=== PATIENT | male | born 1945 | race Caucasian/White ===

== ENCOUNTER 2020-07-23 16:09 | Emergency (ER) | payer MEDICARE ==
[~2020-07-23] VITALS: Ht 175.2 cm; Wt 79.5 kg
[~2020-07-23 16:09] MED LIST: CEFD300C3 PO; GLIM2TAB4; METF-399
--- NOTE | 2020-07-23 16:18 | ED General ---
General Stated Complaint: GEN WEAKNESS Source of Information: Patient, EMS History of Present Illness Date Seen by Provider: Jul 23, 2020 Time Seen by Provider: 16:16 Initial Comments 75-year-old male presents via EMS from home with complaint of weakness, decreased appetite, lower abdominal pain for the past couple weeks. EMS states they went to see him 2 weeks ago for the same and he had refused transport at that time. Denies any recent illness, fever or chills, denies chest pain, swelling of extremities, cough or shortness of air. Denies any exposure to the [facility] virus. Allergies and Home Medications Allergies Coded Allergies: omeprazole (Unverified Adverse Reaction, Unknown, 02/23/20) [facility] records state "hypertension" Home Medications Azithromycin 250 Mg Tablet, 250 MG PO UD TAKE 2 TABLETS ON DAY ONE THEN TAKE 1 TABLET DAILY FOR FOUR MORE DAYS Prescribed by: MARCOS KRAUS on 07/23/201830 Cefdinir 300 Mg Capsule, 300 MG PO BID Prescribed by: GILBERT MULLINS on 02/23/20 155 Ivermectin 3 Mg Tablet, 3 MG PO DAILY PRN 4 tabs po x 1 today, repeat 4 tabs po in 3 days Prescribed by: MARCOS KRAUS on 07/23/201830 Lisinopril/Hydrochlorothiazide 1 Each Tablet, 1 EACH PO DAILY Prescribed by: MARCOS KRAUS on 07/23/201830 Patient Home Medication List Home Medication List Reviewed: Yes Review of Systems Review of Systems Constitutional: see HPI; No chills, No dizziness; malaise, weakness EENTM: no symptoms reported Respiratory: no symptoms reported; No cough, No short of breath Cardiovascular: No chest pain, No edema, No palpitations, No syncope Gastrointestinal: abdominal pain, constipation, loss of appetite; No nausea, No vomiting Skin: No change in color, No rash Psychiatric/Neurological: Denies Headache, Denies Seizure; Weakness Past Ocbthvx-Xdnoiz-Xvkyhw Hx Past Med/Social Hx: Reviewed Nursing Past Med/Soc Hx Patient Social History Recent Hopitalizations: No Seasonal Allergies Seasonal Allergies: No Past Medical History Surgeries: Yes (EGD, Inguinal hernia repair, Hydrocele repair) Transurethral Resection Respiratory: No (Former smoker, poor historian) Cardiac: Yes Neurological: No Genitourinary: Yes (prior TURP) Prostate Problems Gastrointestinal: Yes Gastroesophageal Reflux Musculoskeletal: No Endocrine: Yes Diabetes, Non-Insulin dep HEENT: No Cancer: No Psychosocial: No Integumentary: No Blood Disorders: Yes (Iron def anemia) Physical Exam Vital Signs Vital Signs - First Documented 07/23/20 16:40 Temp 35.7 Pulse 83 Resp 18 B/P (MAP) 193/106 (135) Pulse Ox 100 O2 Delivery Nasal Cannula O2 Flow Rate 2.00 Capillary Refill : Height, Weight, BMI Height: '" Weight: lbs. oz. kg; 22.00 BMI Method: General Appearance: No Apparent Distress, Cachetic, Thin HEENT: PERRL/EOMI, Normal ENT Inspection Respiratory: Chest Non Tender, Lungs Clear, Normal Breath Sounds, No Accessory Muscle Use, No Respiratory Distress Cardiovascular: Regular Rate, Rhythm, No Edema, No Gallop, No JVD Gastrointestinal: No Organomegaly, No Pulsatile Mass, Soft; No Distended, No Guarding, No Hepatomegaly, No Hernia; Tenderness (diffuse mid abdomen, non- localized) Back: Normal Inspection, No CVA Tenderness Extremity: Normal Capillary Refill, Non Tender, No Calf Tenderness Neurologic/Psychiatric: Alert, No Motor/Sensory Deficits, Normal Mood/Affect Skin: Normal Color, Warm/Dry Focused Exam Lactate Level 07/23/20 16:35: Lactic Acid Level 1.33 Lactic Acid Level Laboratory Tests Test 07/23/20 16:35 Lactic Acid Level 1.33 MMOL/L (0.50-2.00) Progress/Results/Core Measures Suspected Sepsis SIRS Temperature: Pulse: Respiratory Rate: Laboratory Tests 07/23/20 16:15: White Blood Count 9.3 Blood Pressure / Mean: 07/23/20 16:35: Lactic Acid Level 1.33 Laboratory Tests 07/23/20 16:15: Platelet Count 626H 07/23/20 16:35: Creatinine 0.79, Total Bilirubin 0.7 Results/Orders Lab Results Laboratory Tests Test 07/23/20 16:15 07/23/20 16:35 Range/Units White Blood Count 9.3 4.3-11.0 10^3/uL Red Blood Count 4.67 4.35-5.85 10^6/uL Hemoglobin 14.5 13.3-17.7 G/DL Hematocrit 44 40-54 % Mean Corpuscular Volume 93 80-99 FL Mean Corpuscular Hemoglobin 31 25-34 PG Mean Corpuscular Hemoglobin Concent 33 32-36 G/DL Red Cell Distribution Width 13.1 10.0-14.5 % Platelet Count 626 H 130-400 10^3/uL Mean Platelet Volume 10.7 H 7.4-10.4 FL Immature Granulocyte % (Auto) 2 % Neutrophils (%) (Auto) 73 42-75 % Lymphocytes (%) (Auto) 11 L 12-44 % Monocytes (%) (Auto) 14 H 0-12 % Eosinophils (%) (Auto) 1 0-10 % Basophils (%) (Auto) 0 0-10 % Neutrophils # (Auto) 6.8 1.8-7.8 X 10^3 Lymphocytes # (Auto) 1.0 1.0-4.0 X 10^3 Monocytes # (Auto) 1.3 H 0.0-1.0 X 10^3 Eosinophils # (Auto) 0.1 0.0-0.3 10^3/uL Basophils # (Auto) 0.0 0.0-0.1 10^3/uL Immature Granulocyte # (Auto) 0.2 H 0.0-0.1 10^3/uL Sodium Level 141 135-145 MMOL/L Potassium Level 3.7 3.6-5.0 MMOL/L Chloride Level 102 98-107 MMOL/L Carbon Dioxide Level 27 21-32 MMOL/L Anion Gap 12 5-14 MMOL/L Blood Urea Nitrogen 16 7-18 MG/DL Creatinine 0.79 0.60-1.30 MG/DL Estimat Glomerular Filtration Rate > 60 BUN/Creatinine Ratio 20 Glucose Level 122 H 70-105 MG/DL Lactic Acid Level 1.33 0.50-2.00 MMOL/L Calcium Level 8.4 L 8.5-10.1 MG/DL Corrected Calcium 9.4 8.5-10.1 MG/DL Total Bilirubin 0.7 0.1-1.0 MG/DL Aspartate Amino Transf (AST/SGOT) 21 5-34 U/L Alanine Aminotransferase (ALT/SGPT) 8 0-55 U/L Alkaline Phosphatase 65 40-136 U/L Troponin I < 0.30 <0.30 NG/ML Total Protein 6.1 L 6.4-8.2 GM/DL Albumin 2.7 L 3.2-4.5 GM/DL Lipase 36 8-78 U/L My Orders Orders - BERNARDAVENSTMARCOS SANCHEZ DO Ed Iv/Invasive Line Start (07/23/20 16:18) Ekg Tracing (07/23/20 16:18) Cbc With Automated Diff (07/23/20 16:18) Comprehensive Metabolic Panel (07/23/20 16:18) Lactic Acid Analyzer (07/23/20 16:18) Lipase (07/23/20 16:18) Troponin I Fs (07/23/20 16:18) Ct Abdomen/Pelvis W (07/23/20 16:18) Ns Iv 500 Ml (Sodium Chloride 0.9%) (07/23/20 16:30) Fentanyl Injection (Sublimaze Injection (07/23/20 16:30) Urinalysis (07/23/20 17:17) Iohexol Injection (Omnipaque 350 Mg/Ml 1 (07/23/20 17:45) Received Contrast (Hold Metformin- Contr (07/23/20 17:45) Sodium Chloride Flush (Catheter Flush Sy (07/23/20 17:45) Ns (Ivpb) (Sodium Chloride 0.9% Ivpb Bag (07/23/20 17:45) Hydralazine Injection (Apresoline Inject (07/23/20 18:00) Coronavirus Sars-Cov-2 So 2018 (07/23/20 18:33) Medications Given in ED Current Medications Medications Dose Ordered Sig/Betzaida Route Start Time Stop Time Status Last Admin Dose Admin Fentanyl Citrate 25 mcg Q1H PRN IVP 07/23/20 16:30 07/23/20 16:29 25 MCG Hydralazine HCl 5 mg ONCE ONCE IV 07/23/20 18:00 07/23/20 18:01 DC 07/23/20 18:15 5 MG Iohexol 100 ml ONCE ONCE IV 07/23/20 17:45 07/23/20 17:46 DC 07/23/20 17:44 100 ML Sodium Chloride 10 ml NEEDED PRN IV 07/23/20 17:45 07/23/20 17:58 10 ML Sodium Chloride 100 ml ONCE ONCE IV 07/23/20 17:45 07/23/20 17:46 DC 07/23/20 17:44 100 ML Vital Signs/I&O 07/23/20 16:40 Temp 35.7 Pulse 83 Resp 18 B/P (MAP) 193/106 (135) Pulse Ox 100 O2 Delivery Nasal Cannula O2 Flow Rate 2.00 Capillary Refill : Progress Note : Progress Note Patient with normal vital signs, including an oxygen saturation on room air of 100 percent and the exception of an elevated blood pressure (no known history of hypertension and not on medication). Relatively normal labs and CT with no acute changes, however noted lower lungs with ground glass appearance consistent with a COVID. Suspect patient had contracted this several weeks ago as he's been sick for several weeks. We'll treat with routine medications, although I think patient is well out of the window for serious illness, despite his rather emaciated state and lack of signs of great health. We'll start the patient on antihypertensive medication with planned follow-up with his PCP in one week. Also prescriptions for: Ivermectin, azithromycin. Recommended routine vitamin D, vitamin C, zinc and melatonin. Patient advised to follow-up in the ER promptly if his symptoms progress and unable to see his PCP. ECG Initial ECG Impression Date: Jul 23, 2020 Initial ECG Impression Time: 16:30 Initial ECG Rhythm: Normal Sinus Initial ECG Intervals: Normal Initial ECG Intervals no acute ischemic changes Initial ECG Impression: Normal Departure Impression Primary Impression: Weakness Additional Impressions: Abdominal pain Qualified Codes: R10.9 - Unspecified abdominal pain Hypertension Qualified Codes: I10 - Essential (primary) hypertension Person under investigation for COVID-19 Disposition: 01 HOME, SELF-CARE Condition: Stable Departure-Patient Inst. Decision time for Depature: 18:28 Referrals: ROBERT RIVERO MD (PCP/Family) Primary Care Physician Patient Instructions: Coronavirus Disease 2019 (COVID-19) ED, Generalized Weakness (DC), High Blood Pressure (DC) Add. Discharge Instructions: Follow up with Dr Rivero in 5 to 7 days, sooner if worse. Return to the ER for any worsening symptoms or difficulty breathing. You are advised to take the following for the next 2 weeks: Vitamin D 4,000iu daily Vitamin C 1,000mg daily Zinc 100mg twice daily Melatonin 10mg at bedtime Scripts Azithromycin (Azithromycin) 250 Mg Tablet 250 MG PO UD, #6 TAB TAKE 2 TABLETS ON DAY ONE THEN TAKE 1 TABLET DAILY FOR FOUR MORE DAYS Prov: MARCOS KRAUS DO 07/23/20 Ivermectin (Ivermectin) 3 Mg Tablet 3 MG PO DAILY PRN, #8 TAB 4 tabs po x 1 today, repeat 4 tabs po in 3 days Prov: MARCOS KRAUS DO 07/23/20 Lisinopril/Hydrochlorothiazide (Lisinopril-Hctz 20-12.5 mg Tab) 1 Each Tablet 1 EACH PO DAILY for 30 Days, #30 TAB Prov: MARCOS KRAUS DO 07/23/20 MARCOS KRAUS DO Jul 23, 2020 16:18
[2020-07-23] MEDS ORDERED: fentaNYL INJECTION 100 MCG/2 ML AMP IVP PRN (16:30)
[2020-07-23] MEDS ORDERED: NS IV 500 ML 500 ML IV SCH (16:30)
[2020-07-23 16:58] LABS: HEMATOCRIT 44 % (40-54); HEMOGLOBIN 14.5 G/DL (13.3-17.7); MEAN CORPUSCULAR HEMOGLOBIN 31 PG (25-34); MEAN CORPUSCULAR HGB CONC 33 G/DL (32-36); MEAN CORPUSCULAR VOLUME 93 FL (80-99); MEAN PLATELET VOLUME 10.7 FL (7.4-10.4); PLATELET COUNT 626 10^3/uL (130-400); WHITE BLOOD COUNT 9.3 10^3/uL (4.3-11.0)
[2020-07-23 16:59] LABS: BASOPHILS % (AUTO) 0 % (0-10); EOSINOPHILS # (AUTO) 0.1 10^3/uL (0.0-0.3); EOSINOPHILS % (AUTO) 1 % (0-10); LYMPHOCYTES % (AUTO) 11 % (12-44); MONOCYTES # (AUTO) 1.3 X 10^3 (0.0-1.0); MONOCYTES % (AUTO) 14 % (0-12); NEUTROPHILS # (AUTO) 6.8 X 10^3 (1.8-7.8); NEUTROPHILS % (AUTO) 73 % (42-75)
[2020-07-23 17:04] LABS: ALANINE AMINOTRANSFERASE 8 U/L (0-55); ALBUMIN 2.7 GM/DL (3.2-4.5); ALKALINE PHOSPHATASE 65 U/L (40-136); BILIRUBIN,TOTAL 0.7 MG/DL (0.1-1.0); BUN/CREATININE RATIO 20; CALCIUM 8.4 MG/DL (8.5-10.1); CARBON DIOXIDE 27 MMOL/L (21-32); CHLORIDE 102 MMOL/L (98-107); CREATININE SERUM 0.79 MG/DL (0.60-1.30); GFR ESTIMATED > 60; GLUCOSE 122 MG/DL (70-105); POTASSIUM 3.7 MMOL/L (3.6-5.0); SODIUM 141 MMOL/L (135-145); TOTAL PROTEIN 6.1 GM/DL (6.4-8.2)
[2020-07-23 17:05] LABS: LIPASE 36 U/L (8-78)
[2020-07-23] MEDS ORDERED: IOHEXOL 350 MG/ML 100 ML (OMNIPAQUE 350) VIAL IV ONE (17:45)
[2020-07-23] MEDS ORDERED: CATHETER FLUSH 10 ML SYR IV PRN (17:45)
[2020-07-23] MEDS ORDERED: HOLD METFORMIN - RECEIVED CONTRAST 20 ML VIAL IV SCH (17:45)
[2020-07-23] MEDS ORDERED: NS 100 ML (IVPB) BAG IV ONE (17:45)
[2020-07-23] MEDS ORDERED: hydrALAZINE (APESOLINE) 20 MG/ML VIAL IV ONE (18:00)
--- NOTE | 2020-07-23 18:21 | Diagnostic Imaging Report ---
CT abdomen/pelvis w/contrast. TECHNIQUE: Multiple contiguous axial images were obtained through the abdomen and pelvis after administration of intravenous contrast. All CT scans use one or more of the following dose optimizing techniques: automated exposure control, MA and/or KvP adjustment based on patient size and exam type or iterative reconstruction. INDICATION: Abdominal pain. COMPARISON: None available. FINDINGS: Lower chest: Mixture of peripheral groundglass opacities and consolidations in the lung bases. Peritoneum: No free intraperitoneal air or fluid. Liver and biliary system: The liver is normal. The gallbladder is normal. No biliary duct dilation. Spleen and Pancreas: Spleen is normal. The pancreas enhances normally without mass lesion or peripancreatic inflammatory changes. Adrenals: Normal. tract: The kidneys enhance normally without suspicious mass or obstruction. Nonspecific perinephric stranding is present on the right and extends to the right pericolic gutter. Simple cyst in the upper pole of the right kidney measures 3.7 x 3.2 cm and requires no dedicated follow-up imaging. No renal or ureteral stones. Urinary bladder is distended without wall thickening. Marked prostamegaly is present as the prostate measures approximately 8 x 6 x 7 cm. GI tract: Stomach is decompressed. No bowel obstruction. No pericolonic inflammatory changes. Appendix is not visualized. Vasculature and Lymph nodes: Normal caliber aorta. No abdominal or pelvic lymphadenopathy. Musculoskeletal: No concerning osseous lesion. IMPRESSION: 1. Consolidations and groundglass opacities in the lung bases are highly suspicious for Covid-19 pneumonia. 2. Nonspecific perinephric stranding on the right without obstructing stone or CT feature of pyelonephritis. This may be due to recently passed stone. Correlation with urinalysis is advised. 3. Severe prostamegaly. Dictated by: Dictated on workstation # [id number]
[2020-07-23] MEDS ORDERED: LISI1TAB46 PO (18:31)
[2020-07-23] MEDS ORDERED: IVER3TAB2 PO (18:31)
[2020-07-23] MEDS ORDERED: AZIT250T12 PO (18:31)
--- NOTE | 2020-07-23 18:45 | NUR ---
Call to patient's son Arturo Baptiste to give update and request patient be discharged. Pt is a PUI suspected of being near the end of COVID based on the sx of over 2 weeks and that the CT abd reveals lung bases described like ground glass COVID appearance. The son states patient is not getting up much and is weak and he thinks an admission is needed. Dr and RN note patient moving freely on bed and suspected of crawling to foot of bed to void in a urinal earlier as required to have patient scoot up in the bed. Son was explained the scripts and supplements prescribed. Will swab patient before departing for the actual COVID testing.
[2020-07-23 19:45] VITALS: BP 178/89
--- NOTE | 2020-07-25 08:57 | NUR ---
patient did not answer so I left a message and notified the Dr of positive test.
== END 2020-07-23 19:45 | disposition home or self-care (01) ==
LOC: EDUNIT# 16:09 → ER FS 16:11
DX: R53.1 Weakness (principal); R10.84 Generalized abdominal pain; U07.1 COVID-19; I10 Essential (primary) hypertension; Z87.891 Personal history of nicotine dependence; Z88.8 Allergy status to other drugs, medicaments and biological substances
CPT/HCPCS: 36415; 74177; 80053; 83605; 83690; 84484; 85025; 93005; 99284; U0002; 87635